=== PATIENT | male | born 2000 | race African-American/Black ===

== ENCOUNTER 2023-12-11 22:42 | Emergency (ER) | payer OTHER, SELFPAY ==
[2023-12-11 22:43] VITALS: BP 124/88
--- NOTE | 2023-12-11 23:13 | ED.GENMED ---
History of Present Illness
General
Chief Complaint: Chest Pain
Source: patient
Time Seen by Provider: 12/11/23 23:05
History of Present Illness
History of Present Illness:
23-year-old male presents emergency department with complaints of central chest pain that is noted on and off for few months. He says he notices it sometimes when he is lifting weights but does not notice it when he does cardiac related working
out. The other perhaps provoking factor is if he lays down in a 'weird position' he will sometimes feel it. The pain lasts momentarily and then goes away completely. Pain is without radiation, diaphoresis, neck pain, jaw pain, headache,
dizziness, back pain, dyspnea, nausea, vomiting, cough, leg swelling, or other complaints. The pain comes very sporadically and he could go days without having pain. He describes the quality as 'achy' and mild.
Past History
Past History
ED Past Medical History: None
ED Past Surgical History: None
Social History
Tobacco: Non-smoker
Alcohol: None
Drug: None
Personal: Single
Living: with family
Phy Exam
Physical Exam
Physical Exam:
GENERAL: Alert , in no apparent distress
EYE: pupils equal and reactive
NECK: Supple, no significant adenopathy.
ENT: o/p clr, mmm.
CARDIAC: Regular rate and rhythm .
LUNGS: Clear breath sounds bilaterally, no acute respiratory distress, no wheezes/rales/rhonchi
ABDOMEN: Soft, without focal tenderness, no r/g, no cvat
NEUROLOGICAL: Alert and oriented, no focal neuro deficits
SKIN: Warm and dry, skin intact.
MUSCULOSKELETAL: No edema, well perfused.
PSYCH: Normal and appropriate interaction.
Scores
Heart Score for Chest Pain Patients
STEMI patient?: Not applicable
Course
Orders/Labs/Results
Orders:
Orders
12/11/23 22:48
EKG [Electrocardiogram (*1)] Urgent
Reason for Study: Chest Pain
EKG- Treatment ONCE
12/11/23 23:06
CR Chest - 2 Views Urgent
Comment:
Reason For Exam: CP
Vital Signs
Initial and Last Documented VS:
Initial Vital Signs
Temp Pulse Resp BP Pulse Ox
98.2 F 70 16 124/88 99
12/11/23 22:43 12/11/23 22:43 12/11/23 22:43 12/11/23 22:43 12/11/23 22:43
Last Documented Vital Signs
Temp Pulse Resp BP Pulse Ox
98.2 F 70 16 124/88 99
12/11/23 22:43 12/11/23 22:43 12/11/23 22:43 12/11/23 22:43 12/11/23 23:32
*Critical Care Note
Total Time (30-74mins, 75-104mins- exclusive of procedures): Not Applicable
Update Note
Update Note:
Patient presents to the Emergency Department with ___chest pain
Number and Complexity of Problems Addressed at the Encounter
� Chronic conditions affecting care:
� Acute Exacerbation and/or Progression of Chronic Illness:
� Differential Diagnosis includes: But not limited to costochondritis, pleurisy, muscular strain, pericarditis, pneumothorax, etc.
Amount and/or Complexity of Data to be Reviewed and Analyzed
� I performed an independent evaluation of and my interpretation is:
EKG: Read by me, normal sinus rhythm, normal rate, normal axis, no acute ischemia, no ST abnormalities
CT:
Xrays:CXR read by me nad
Laboratory Studies:
Other:
� Review of other/old records reveals:
� Clinical information was obtained by an independent historian:
� Prescriptions/Medications Considered but not given:
� Further testing considered but not performed:
Risk of Complications and/or Morbidity or Mortality of Patient Management
� Social determinants of health affecting care:
� Discussion with other providers (PCP, Hospitalists, Consultants, etc):
� Escalation of care including admission/observation vs risk of discharge considered: Unremarkable workup here including chest x-ray, EKG, physical exam, vital sign. Discussed with patient importance of follow-up and reasons
return to the ER.
ED Attending Note
-
Portions of this chart may have been created with voice recognition software.� Occasional wrong word or��sound alike� substitutions may have occurred due to the inherent limitations of voice recognition software.
Discharge Plan
Departure
Patient Disposition: Home (Routine Discharge)
Date of Disposition: 12/11/23
Time of Disposition: 23:59
Patient with high blood pressure during this ER visit?: Yes
Condition: Good
Discharge Problem:
Chest pain
Instructions: Chest Pain PCP Follow Up, BLOOD PRESSURE
Prescriptions:
No Action
No Current Medications
0
Referrals:
NONE,* [Family Provider] -
Activity Restrictions/Additional Instructions:
PLEASE SEE YOUR DOCTOR AND CLOSE FOLLOW-UP. IF YOU DEVELOP INCREASING OR NEW PAIN, TROUBLE BREATHING, DIZZINESS, SWELLING, FEVER, OR OTHER WORRISOME SIGNS, PLEASE RETURN TO THE ER IMMEDIATELY.
Interventions
Interventions:
*Risk Screen - Suicide Last Done: 12/11/23 22:43
*General Assessment Last Done: 12/11/23 22:43
*Neglect/Abuse Screening Last Done: 12/11/23 22:43
ED- Fall Risk Assessment Last Done: 12/11/23 23:32
*ED COVID-19 Vaccine History Last Done: 12/11/23 22:43
ED- Cardiac Assessment Last Done: 12/11/23 23:32
Discharge Date and Time
Print Language: BULGARIAN
[2023-12-11 23:32] VITALS: BMI 22.3
[2023-12-12 00:55] VITALS: BP 114/64
== END 2023-12-12 00:56 | disposition home or self-care (01) ==
LOC: EMR 22:42
PROVIDERS: EMERGENCY PHYSICIAN Emergency Medicine
DX: R07.89 Other chest pain (principal)
CPT/HCPCS: 99283; 71046; 93005

== ENCOUNTER 2024-05-06 16:35 | Emergency (ER) | payer OTHER, SELFPAY ==
[2024-05-06] MEDS: ADACEL 0.5 ML IM (18:10)
--- NOTE | 2024-05-06 18:12 | ED.GENMED ---
History of Present Illness
General
Chief Complaint: Skin Problem
Source: patient
Exam Limitations: none
Time Seen by Provider: 05/06/24 17:06
Nursing documentation reviewed up to this point in time: agreed with
History of Present Illness
History of Present Illness:
Patient is a 24-year-old male presenting to the emergency department for evaluation of right hand injury. Patient states he was using a friend's virtual reality headset a few hours ago when he accidentally punched a glass mirror. He presents with
multiple small lacerations to his right hand over his knuckles. He is concerned that there may be glass retained in wounds. Patient denies any significant pain. No numbness/tingling in right hand/digits. 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
Last tetanus shot unknown.
Past History
Past History
ED Past Medical History: None
ED Past Surgical History: None
Social History
Tobacco: Non-smoker
Alcohol: None
Drug: None
Personal: Single
Living: with family
Review of Systems
Review of Systems
Allergies reviewed?: Yes
All Other Systems: ROS reviewed and negative except as documented in HPI and ROS
Phy Exam
Physical Exam
Physical Exam:
Vitals: Patient's vital signs are stable. Afebrile
General: Patient is well appearing, no acute distress
Skin: Warm and dry, no rashes or lesions
Head: Normocephalic, atraumatic
Throat: Protecting airway
Neck: Normal ROM, no cervical spine tenderness
Cardiac: Regular rate
Pulm: No apparent respiratory distress
Abdomen: Nondistended
Extremities: Multiple very superficial abrasions/skin tears to right dorsal hand overlying MCP and PIP joints. Patient is excellent strength in right hand and full sensation. Cap refill wnl. no evidence of tendon involvement. No visualized
foreign body. No bony tenderness to right hand or digits
Neuro: Grossly intact
Psychiatric: Normal affect.
Course
Orders/Labs/Results
Orders:
Orders
05/06/24 17:30
Tetanus/Diphth/Acelpertussis [Adacel] 0.5 ml IM .ONCE ONE
Hand, Right 3 View [CR Hand - Right Min 3 Views] Urgent
Comment: concern for retained glass
Reason For Exam: lacerations to right hand
Vital Signs
Initial and Last Documented VS:
Initial Vital Signs
Temp Pulse Resp Pulse Ox
98.9 F 77 18 99
05/06/24 16:44 05/06/24 16:44 05/06/24 16:44 05/06/24 16:44
Last Documented Vital Signs
Temp Pulse Resp BP Pulse Ox
98.9 F 78 18 129/82 100
05/06/24 16:44 05/06/24 19:04 05/06/24 19:04 05/06/24 19:04 05/06/24 19:04
MDM/Problems Addressed
Differential Diagnosis Includes:
Not limited to: Retained foreign body skin tear, skin abrasion, hand fracture, finger fractures, etc.
MDM/Problems Addressed:
24-year-old male presents with right hand injury after accidentally punching a mirror while playing virtual reality game about 2 hours prior to arrival. Patient concern for retained glass. No other injury sustained. Patient has stable vital
signs. Physical exam as above. Multiple very superficial skin tears/abrasions to right dorsal hand overlying MCP, PIP joints of digits 2 - 5. Patient has no bony tenderness to right hand or digits. Patient has full strength and excellent
sensation in right hand/digits. Cap refill wnl. Wounds were thoroughly irrigated with normal saline. On visual inspection no evidence of retained foreign body. Did obtain x-ray of right hand which shows no evidence of retained foreign body or
fracture. Wounds were once again irrigated with normal saline after x-ray, topical antibiotic applied and covered with Band-Aids. Tdap updated. Ultimately�very low suspicion for retained glass/foreign body other disc patient that there is a
possibility of small pieces not noticed on exam/imaging. Advised very close monitoring of wounds for any signs of infection. Close return precautions discussed. Case discussed with attending physician.
Chronic conditions affecting care:
N/A
Acute Exacerbation and/or Progression of Chronic Illness:
N/A
*Radiology
Radiology exam reviewed: preliminary read by ED provider (X-ray reviewed by me-no evidence of retained foreign body or acute fracture) and radiology read reviewed
*Pulse Oximetry
Patient hypoxic: no
*EKG
Interpreted by ED Provider?: NA
*Cooler Room Worker Interpretation
Rate: Cooler Room Worker- N/A
*Critical Care Note
Total Time (30-74mins, 75-104mins- exclusive of procedures): Not Applicable
ED Attending Note
-
Portions of this chart may have been created with voice recognition software.� Occasional wrong word or��sound alike� substitutions may have occurred due to the inherent limitations of voice recognition software.
Discharge Plan
Departure
Patient Disposition: Home (Routine Discharge)
Date of Disposition: 05/06/24
Time of Disposition: 18:45
Patient with high blood pressure during this ER visit?: No
Condition: Good
Covid-19: Not Applicable
Discharge Problem:
Abrasion of multiple sites of right hand and finger
Instructions: Wound Care (DC)
Prescriptions:
No Action
No Current Medications
0
Referrals:
UNKNOWN - PT DOES,NOT KNOW [Family Provider] -
Activity Restrictions/Additional Instructions:
RETURN TO THE EMERGENCY DEPARTMENT WITH ANY SIGNS OF INFECTION INCLUDING FEVERS, CHILLS, REDNESS OR SWELLING AROUND WOUNDS, PUS DRAINING FROM WOUND, RED STREAKING FROM WOUND, PAIN OR SWELLING OF HAND, OR ANY OTHER CONCERNS
-As discussed�your x-ray did not show any definitive foreign body. However�we are unable to completely rule out retained glass in wound and you should monitor wounds closely.
-You should keep wounds clean and dry. Wash gently with soap and water. Apply topical antibiotic and keep covered.
-Follow-up with your primary care for further evaluation/management as needed.
Monitor your symptoms closely and return to the emergency department any acute worsening/new symptoms or any other concerns
Interventions
Interventions:
*Risk Screen - Suicide Last Done: 05/06/24 16:44
*General Assessment Last Done: 05/06/24 16:44
*Neglect/Abuse Screening Last Done: 05/06/24 16:44
ED- Fall Risk Assessment Last Done: 05/06/24 18:09
*ED COVID-19 Vaccine History Last Done: 05/06/24 18:09
*Nursing Disposition Last Done: 05/06/24 19:04
ED-Skin Assessment Last Done: 05/06/24 18:09
Discharge Date and Time
Discharge Date/Time: 05/06/24 19:00
Print Language: ARABIC
[2024-05-06 18:56] VITALS: BP 129/82
--- NOTE | 2024-05-06 19:02 | EDRN ---
Discharge instructions given to patient by Vera Bonilla PA-C.
[2024-05-06 19:04] VITALS: BP 129/82
== END 2024-05-06 19:00 | disposition home or self-care (01) ==
LOC: EMR 16:35
PROVIDERS: EMERGENCY PHYSICIAN Emergency Medicine
DX: S60.511A Abrasion of right hand, initial encounter (principal); W25.XXXA Contact with sharp glass, initial encounter; Z23 Encounter for immunization
CPT/HCPCS: 90471; 99283; 73130; 90715

== ENCOUNTER 2024-12-29 10:56 | Emergency (ER) | payer SELFPAY ==
[2024-12-29 11:05] VITALS: BP 128/64
[2024-12-29 11:20] VITALS: BMI 21.5
--- NOTE | 2024-12-29 11:49 | ED.GENMED ---
History of Present Illness
General
Chief Complaint: Eye Problems
Source: patient
Exam Limitations: none
Time Seen by Provider: 12/29/24 11:31
Nursing documentation reviewed up to this point in time: agreed with
History of Present Illness
History of Present Illness:
Patient presents to ED from work for potential foreign body, i.e. a piece of metal, in his right eye. Patient states that he was cutting metal sheet, while wearing protective eye wear, when he felt something go into his eye. Patient immediately
flushed his right eye with water. Since then, it is a discomfort which he had when he was looking to his right, has resolved completely. Denies any other injuries. Denies blurred vision. Denies headache. Denies dizziness.
Past History
Past History
ED Past Medical History: None
ED Past Surgical History: None
Social History
Tobacco: Non-smoker
Alcohol: None
Drug: None
Personal: Single
Living: with family
Review of Systems
Review of Systems
Allergies reviewed?: Yes
All Other Systems: ROS reviewed and negative except as documented in HPI and ROS
Constitutional: Reports no symptoms
EENT: Reports no symptoms
Musculoskeletal: Reports no symptoms
Skin: Reports no symptoms
Neurological: Reports no symptoms
Phy Exam
Physical Exam
Physical Exam:
Physical Exam
General: no apparent distress, not acutely ill. afebrile
Head: nc/at. eomi. normal conjunctiva. Negative fluorescein dye uptake.
Neck: supple. no meningeal signs.
Neuro: alert and oriented x 3. no focal neurological deficits
Skin: no rash
Psychiatric: well kept. interactive and cooperative
Extremities: no edema. no calf tenderness.
Course
Orders/Labs/Results
Orders:
Orders
12/29/24 11:57
Drug Screen, Urine [Urine Drug Abuse Screen] Urgent
Date Specimen was Collected: 12/29/24
Time Specimen was Collected: 11:54
12/29/24 12:17
Fluorescein Sodium [Ful-Tasneem] 3 mg .ROUTE .STK-MED ONE
Vital Signs
Initial and Last Documented VS:
Initial Vital Signs
Temp Pulse Resp BP Pulse Ox
97.8 F 70 18 128/64 97
12/29/24 11:05 12/29/24 11:05 12/29/24 11:05 12/29/24 11:05 12/29/24 11:05
Last Documented Vital Signs
Temp Pulse Resp BP Pulse Ox
97.8 F 70 18 128/64 97
12/29/24 11:05 12/29/24 11:05 12/29/24 11:05 12/29/24 11:05 12/29/24 11:51
MDM/Problems Addressed
MDM/Problems Addressed:
Urine drug screen performed, at the request of patient and his employer.
No foreign body noted on exam and patient remains asymptomatic, with no discomfort at rest or during eye movement. Negative fluorescein dye uptake. However, in light of patient's history with potential foreign body involvement, we will apply
Nguyễn lens and irrigate the affected eye prior to discharge, with recommendation to follow-up with work comp physician for reevaluation, including potential ophalmologist consultation as outpatient.
*Pulse Oximetry
SaO2: 97
Oxygen Mode of Delivery: Room air
Patient hypoxic: no
*Critical Care Note
Total Time (30-74mins, 75-104mins- exclusive of procedures): Not Applicable
ED Attending Note
-
Portions of this chart may have been created with voice recognition software.� Occasional wrong word or��sound alike� substitutions may have occurred due to the inherent limitations of voice recognition software.
Discharge Plan
Departure
Patient Disposition: Home (Routine Discharge)
Date of Disposition: 12/29/24
Time of Disposition: 11:56
Patient with high blood pressure during this ER visit?: Yes
Condition: Good
Discharge Problem:
Foreign body in eye
Instructions: Foreign Body in Eye (DC)
Prescriptions:
No Action
No Current Medications
0
Referrals:
Leena Sandhu MD [Active, Ophthalmology]
Gorge Aponte MD, Resident [Family Provider, General]
Stand Alone Forms: Return to Work
Activity Restrictions/Additional Instructions:
As discussed, please follow-up with your work comp physician or referred pesticide chemist for reevaluation. Please consider return to ED immediately with recurrent symptoms.
Interventions
Interventions:
*Risk Screen - Suicide Last Done: 12/29/24 11:05
*General Assessment Last Done: 12/29/24 11:05
*Neglect/Abuse Screening Last Done: 12/29/24 11:05
*ED- Fall Risk Assessment Last Done: 12/29/24 11:20
*ED COVID-19 Vaccine History Last Done: 12/29/24 11:05
*Nursing Disposition Last Done: 12/29/24 12:28
Discharge Date and Time
Discharge Date/Time: 12/29/24 12:32
Print Language: ALGERIAN
== END 2024-12-29 12:32 | disposition home or self-care (01) ==
LOC: EMR 10:56
PROVIDERS: EMERGENCY PHYSICIAN Emergency Medicine; FAMILY PHYSICIAN Student in an Organized Health Care Education/Training Program
DX: T15.90XA Foreign body on external eye, part unspecified, unspecified eye, initial encounter (principal); W44.9XXA Unspecified foreign body entering into or through a natural orifice, initial encounter
CPT/HCPCS: 99282; 80306